=== PATIENT | female | born 1985 | race Caucasian/White ===

== ENCOUNTER 2020-08-17 15:07 | Emergency (ER) | payer OTHER, MEDICAID ==
[~2020-08-17] VITALS: Ht 165.1 cm; Wt 48.1 kg
[~2020-08-17 15:07] MED LIST: ADDERALL 10 MG10 MG PO; ALDACTONE25 MG PO; FISH OIL 1,001000 M2 PO; HYDROCODONE-APA1 TA1 PO; LATUDA20 MG PO; LEVAQUIN 500 M500 M2 PO; LEXAPRO 10 MG T10 M1 PO; MELATONIN3 MG PO; MIRENA1 EACH VAG; NORCO 5-325 TA1 EACH PO; VISTARIL 25 MG25 M1 PO; VITAMIN D1000 UNI1 PO; XANAX 0.5 MG0.5 MG PO
[2020-08-17] MEDS ORDERED: NEURONTIN300 MG PO (15:17)
[2020-08-17] MEDS ORDERED: ADDERALL 20 MG20 MG PO (15:17)
[2020-08-17] MEDS ORDERED: DESYREL150 MG PO (15:18)
[2020-08-17 18:08] VITALS: BP 129/82
--- NOTE | 2020-08-18 11:39 | EKG ---
[place] [address] ELECTROCARDIOGRAM REPORT Name: LAMAR STUART Room: [facility]#: [id number] Admission: 08/17/20 Attend Phys: Discharge: 08/17/20 Date of : 87 Date of Service: 08/17/20 1518 Report #: [id number] THIS REPORT FOR: //name// 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
== END 2020-08-17 18:09 | disposition home or self-care (01) ==
LOC: M.ERS 15:07
DX: S16.1XXA Strain of muscle, fascia and tendon at neck level, initial encounter (principal); M79.674 Pain in right toe(s); K21.9 Gastro-esophageal reflux disease without esophagitis; Z88.1 Allergy status to other antibiotic agents; Z88.2 Allergy status to sulfonamides; V89.2XXA Person injured in unspecified motor-vehicle accident, traffic, initial encounter; Y93.89 Activity, other specified; Y92.89 Other specified places as the place of occurrence of the external cause; Y99.8 Other external cause status